=== PATIENT | female | born 1990 | race Caucasian/White ===

== ENCOUNTER 2021-08-03 07:00 | Emergency (ER) | payer OTHER ==
[~2021-08-03] VITALS: Ht 154.9 cm; Wt 68.0 kg
[2021-08-03] MEDS ORDERED: CLOT30CR24 TP (08:02)
[2021-08-03] MEDS ORDERED: FAMO40TA71 PO (08:02)
[2021-08-03] MEDS ORDERED: PRED50TA PO (08:02)
[2021-08-03] MEDS ORDERED: DIPH-1091 PO (08:02)
--- NOTE | 2021-08-03 08:06 | NUR ---
Patient discharged to home in stable condition. Written and verbal after care instructions given. Patient verbalizes understanding of instructions. Stressed follow up or return to ER for worsening s/s.
--- NOTE | 2021-08-04 08:25 | NUR ---
Tried calling patient x2 on 08/04/21.
== END 2021-08-03 08:07 | disposition home or self-care (01) ==
LOC: ER 07:00
DX: L42 Pityriasis rosea (principal); M79.7 Fibromyalgia
CPT/HCPCS: A4663

== ENCOUNTER 2024-06-18 03:30 | Emergency (ER) | payer MEDICAID, OTHER ==
[~2024-06-18] VITALS: Ht 154.9 cm; Wt 68.0 kg
[~2024-06-18 03:30] MED LIST: CLOT30CR24 TP; DIPH-1091 PO; FAMO40TA71 PO; PRED50TA PO
[2024-06-18 04:40] LABS: *BILIRUBIN,URIN NEGATIVE (NEGATIVE); *CLARITY,URINE CLOUDY (CLEAR); *COLOR,URINE YELLOW (YELLOW); *KETONES,URINE NEGATIVE (NEGATIVE); *PROTEIN,URINE TRACE (NEGATIVE); *UROBILINOGEN,URINE 0.2 E.U./dl (NORMAL); LEUKOCYTE ESTERASE ,URINE TRACE (NEGATIVE); NITRITE, URINE NEGATIVE (NEGATIVE); UGLUCOSE NEGATIVE (NEGATIVE)
[2024-06-18 04:41] LABS: BASOPHILS % (AUTO) 0.5 % (0.0-2.0); EOSINOPHILS # (AUTO) 0.2 K/uL (0.0-0.7); HEMATOCRIT 38.3 % (31.2-41.9); HEMOGLOBIN 13.1 g/dL (10.9-14.3); LYMPHOCYTES # (AUTO) 2.1 K/uL (0.8-4.8); LYMPHOCYTES % (AUTO) 26.6 % (20.5-51.5); MEAN CORPUSCULAR HEMOGLOBIN 31.4 uug (24.7-32.8); MEAN CORPUSCULAR HGB CONC 34 g/dL (32.3-35.6); MEAN CORPUSCULAR VOLUME 92.2 fL (75.5-95.3); MONOCYTES # (AUTO) 0.8 K/uL (0.1-1.30); MONOCYTES % (AUTO) 9.5 % (0.0-11.0); NEUTROPHILS # (AUTO) 4.8 K/uL (1.8-8.9); NEUTROPHILS % (AUTO) 60.4 % (38.5-71.5); PLATELET COUNT (AUTO) 305 K/uL (179-408); RED BLOOD CELL COUNT(AUTO) 4.15 MIL/uL (3.63-4.92); RED CELL DISTRIBUTION WIDTH 13.1 % (12.3-17.7); WHITE BLOOD COUNT (AUTO) 7.9 K/uL (3.8-11.8)
[2024-06-18 04:43] LABS: *BLOOD, URINE TRACE (NEGATIVE); *URINE HCG, QUAL NEGATIVE (NEGATIVE)
[2024-06-18] MEDS: ACETAMINOPHEN 500 MG TABLET PO ONE (04:45)
[2024-06-18] MEDS: MECLIZINE HCL 25 MG TABLET PO ONE (04:45)
[2024-06-18] MEDS: PSEUDOEPHEDRINE HCL 30 MG TABLET PO ONE (04:45)
[2024-06-18 04:46] LABS: DIFFERENTIAL COMMENT 1
[2024-06-18 04:52] LABS: CALCIUM 8.6 mg/dL (8.5-10.1); CREATININE 0.6 mg/dL (0.6-1.3); POTASSIUM 3.7 mmol/L (3.5-5.1)
[2024-06-18 04:54] LABS: RBC,URINE 0-3 /HPF (0-3)
[2024-06-18 04:55] LABS: BACTERIA,URINE MODERATE /HPF (NONE SEEN); SQUAMOUS EPITHELIAL CELL,UR MODERATE /HPF (NONE SEEN)
[2024-06-18 04:58] LABS: ALBUMIN 3.4 g/dL (3.4-5.0); BILIRUBIN,DIRECT 0.1 mg/dL (0.0-0.2); BILIRUBIN,TOTAL 0.3 mg/dL (0.2-1.0); TOTAL PROTEIN, SERUM 6.9 g/dL (6.4-8.2)
[2024-06-18] MEDS ORDERED: METH4TAB21 PO (06:38)
[2024-06-18] MEDS ORDERED: FLUT16SP16 BNOSTRILS (06:38)
[2024-06-18] MEDS ORDERED: P-EP-92 PO (06:38)
[2024-06-18 07:16] VITALS: BP 122/72; TEMP 207.9; O2SAT 98
== END 2024-06-18 07:17 | disposition home or self-care (01) ==
LOC: ER 03:48
DX: H69.81 Other specified disorders of Eustachian tube, right ear (principal); H61.21 Impacted cerumen, right ear; N91.2 Amenorrhea, unspecified; R05.9 Cough, unspecified; R09.81 Nasal congestion; R10.2 Pelvic and perineal pain; R10.31 Right lower quadrant pain; R10.32 Left lower quadrant pain; R42 Dizziness and giddiness; K59.00 Constipation, unspecified; M79.7 Fibromyalgia; Z79.52 Long term (current) use of systemic steroids; Z60.2 Problems related to living alone
CPT/HCPCS: 36415; 84703; 85025; 87086; A4606; A4663

== ENCOUNTER 2024-07-06 06:23 | Emergency (ER) | payer OTHER ==
[~2024-07-06] VITALS: Ht 154.9 cm; Wt 70.3 kg
[~2024-07-06 06:23] MED LIST changes: +FLUT16SP16 BNOSTRILS; +METH4TAB21 PO; +P-EP-92 PO
[2024-07-06] MEDS ORDERED: DOCUSATE SODIUM 100 MG CAPSULE PO ONE (07:00)
[2024-07-06] MEDS: DOCUSATE SODIUM 100 MG/10 ML LIQUID UDC XX ONE (07:08)
[2024-07-06 08:35] VITALS: O2SAT 99
== END 2024-07-06 09:34 | disposition left against medical advice (07) ==
LOC: ER 06:23
DX: H61.21 Impacted cerumen, right ear (principal); R51.9 Headache, unspecified; R11.0 Nausea; M79.7 Fibromyalgia; F41.9 Anxiety disorder, unspecified; Z79.52 Long term (current) use of systemic steroids
CPT/HCPCS: 70450; A4606; A4663

== ENCOUNTER 2024-07-18 05:44 | Emergency (ER) | payer OTHER ==
[~2024-07-18] VITALS: Ht 154.9 cm; Wt 68.0 kg
[2024-07-18] MEDS ORDERED: predniSONE 20 MG TABLET ONE (06:45)
[2024-07-18] MEDS: predniSONE 20 MG TABLET PO ONE (06:47)
[2024-07-18] MEDS ORDERED: NAPR500T6 PO (07:05)
[2024-07-18] MEDS ORDERED: METO-295 PO (07:05)
[2024-07-18] MEDS ORDERED: DIPH25CA83 PO (07:05)
[2024-07-18] MEDS ORDERED: PRED20TA PO (07:07)
[2024-07-18 07:16] VITALS: BP 128/80; TEMP 98; O2SAT 100
== END 2024-07-18 07:18 | disposition home or self-care (01) ==
LOC: ER 05:44
DX: G43.909 Migraine, unspecified, not intractable, without status migrainosus (principal); L20.84 Intrinsic (allergic) eczema; M79.7 Fibromyalgia; F41.9 Anxiety disorder, unspecified; Z79.52 Long term (current) use of systemic steroids
CPT/HCPCS: 99283; J7512; A4606; A4663